=== PATIENT | female | born 1950 | race Caucasian/White ===

== ENCOUNTER 2020-02-15 20:11 | Observation (INO) | payer MEDICARE ==
[2020-02-15] MEDS ORDERED: MORPHINE SULFATE 4 MG/ML SYRINGE IVP STA (20:47)
[2020-02-15] MEDS ORDERED: SODIUM CHLORIDE 0.9% 1,000 ML IV ONE (20:47)
[2020-02-15] MEDS ORDERED: ONDANSETRON 4 MG/2 ML VIAL IVP STA (20:47)
[2020-02-15 21:32] LABS: Basophils % (A) 0 %; Eosinophils # (A) 0.1 k/uL (0-0.7); Eosinophils % (A) 1 %; HCT 38.1 % (34.0-46.0); HGB 12.9 gm/dL (11.4-16.0); Lymphocytes # (A) 1.4 k/uL (1.0-4.8); Lymphocytes % (A) 20 %; MCH 32.1 pg (25.0-35.0); MCHC 33.9 g/dL (31.0-37.0); MCV 94.9 fL (80.0-100.0); Mean Platelet Volume 7.5; Monocytes # (A) 0.3 k/uL (0-1.0); Monocytes % (A) 4 %; Neutrophils # (A) 5.3 k/uL (1.3-7.7); Neutrophils % (A) 73 %; Platelet Count 264 k/uL (150-450); RBC 4.01 m/uL (3.80-5.40); RDW 12.6 % (11.5-15.5); WBC 7.3 k/uL (3.8-10.6)
[2020-02-15 21:40] LABS: ALT 196 U/L (4-34); AST 425 U/L (14-36); African American GFR (CKD) >90 (>60 ml/min/1.73 sqM); Albumin 4.7 g/dL (3.5-5.0); Alkaline Phosphatase 96 U/L (38-126); Anion Gap 11 mmol/L; Blood Urea Nitrogen 16 mg/dL (7-17); Calcium 9.8 mg/dL (8.4-10.2); Carbon Dioxide 22 mmol/L (22-30); Chloride 107 mmol/L (98-107); Glucose 161 mg/dL (74-99); Non-African American GFR(CKD) 81 (>60 ml/min/1.73 sqM); Potassium 3.9 mmol/L (3.5-5.1); Sodium 140 mmol/L (137-145); Total Bilirubin 1.2 mg/dL (0.2-1.3); Total Protein 7.1 g/dL (6.3-8.2)
--- NOTE | 2020-02-15 21:54 | ED ---
Abdominal Pain HPI - General Chief Complaint: Abdominal Pain Stated Complaint: Abdominal Pain Time Seen by Provider: 02/15/20 20:20 Source: patient, family Mode of arrival: ambulatory Limitations: no limitations - History of Present Illness Initial Comments: Patient is a 69-year-old female with no reported past history presents emergency room with reported right upper quadrant abdominal pain. Patient reports that she has had symptoms for the past 6 weeks. States that every time she eats something she will have postprandial pain. Pain will eventually go away. States that this evening she was eating food and approximately 20 minutes after eating she had intense pain. Describes it as a sharp sensation which radiates around to the right side. She had associated nausea and vomiting. She did not take anything for pain. Denies fevers or chills. No chest pain or shortness of breath. Denies ripping or tearing sensation to her back. She denies any associated diarrhea, constipation, melenic stools. There are no other alleviating, precipitating or modifying factors - Related Data Home Medications Medication Instructions Recorded Confirmed Ascorbic Acid [Vitamin C] 500 mg PO DAILY 02/16/20 02/16/20 Calcium Carbonate/Vitamin D3 1 cap PO DAILY 02/16/20 02/16/20 [Calcium 600-Vit D3 500 Softgel] Fenofibrate,Micronized 134 mg PO HS 02/16/20 02/16/20 [Fenofibrate] Levothyroxine Sodium [Synthroid] 50 mcg PO DAILY 02/16/20 02/16/20 Multivitamins, Thera [Multivitamin 1 tab PO DAILY 02/16/20 02/16/20 (formulary)] Ubidecarenone [Co Q-10] 100 mg PO DAILY 02/16/20 02/16/20 Previous Rx's Medication Instructions Recorded Omeprazole [PriLOSEC] 40 mg PO [facility]-BRKFST #14 capsule. 02/17/20 Allergies Allergy/AdvReac Type Severity Reaction Status Date / Time Penicillins Allergy Confusion Verified 02/16/20 08:18 Review of Systems ROS Statement: Those systems with pertinent positive or pertinent negative responses have been documented in the HPI. ROS Other: All systems not noted in ROS Statement are negative. Past Medical History Past Medical History: No Reported History History of Any Multi-Drug Resistant Organisms: None Reported Past Surgical History: Section Past Psychological History: No Psychological Hx Reported Smoking Status: Never smoker Past Alcohol Use History: Occasional Past Drug Use History: None Reported - Past Family History Brother(s) Family Medical History: Diabetes Mellitus Mother Family Medical History: Congestive Heart Failure (CHF) General Exam Limitations: no limitations General appearance: alert, in distress, other (moaning in pain upon presentation) Head exam: Present: atraumatic, normocephalic, normal inspection Eye exam: Present: normal appearance, PERRL, EOMI. Absent: scleral icterus, conjunctival injection, periorbital swelling ENT exam: Present: normal exam, mucous membranes moist Neck exam: Present: normal inspection. Absent: tenderness, meningismus, lymphadenopathy Respiratory exam: Present: normal lung sounds bilaterally. Absent: respiratory distress, wheezes, rales, rhonchi, stridor Cardiovascular Exam: Present: regular rate, normal rhythm, normal heart sounds. Absent: systolic murmur, diastolic murmur, rubs, gallop, clicks GI/Abdominal exam: Present: soft, tenderness (RUQ), normal bowel sounds. Absent: distended, guarding, rebound, rigid Extremities exam: Present: normal inspection, full ROM, normal capillary refill. Absent: tenderness, pedal edema, joint swelling, calf tenderness Back exam: Present: normal inspection Neurological exam: Present: alert, oriented X3, CN II-XII intact Psychiatric exam: Present: normal affect, normal mood Skin exam: Present: warm, dry, intact, normal color. Absent: rash Course Vital Signs 02/15/20 02/15/20 02/16/20 20:19 22:00 00:24 Temperature 98.3 F 98.2 F 98 F Pulse Rate 70 65 61 Respiratory 24 16 16 Rate Blood Pressure 142/69 116/46 104/66 O2 Sat by Pulse 96 96 97 Oximetry Medical Decision Making - Medical Decision Making Upon arrival the patient was placed into room 11. A thorough history and physical exam was performed. Patient is an intense amount of pain therefore IV is established. The patient was given 4 mg of morphine and 4 mg of Zofran. Laboratory studies were conducted. Lactic acid is 2.7. Liver enzymes elevated at 425 AST and 196 ALT. Lipase is 355. Ultrasound demonstrates multiple gallstones without signs of acute cholecystitis. CT of the patient's abdomen and pelvis was performed to evaluate for biliary stones. Patient has a single loop of small bowel slightly distended left upper quadrant which could relate to local ileus. Gallstones and possible mild gallbladder wall thickening. I did discuss results with the patient. Pain is markedly improved at this time. I did recommend hospital admission in order to recheck the patient's liver studies in the morning. I will have patient evaluated by GI and surgery to discuss possible passage of gallstone. Patient agreed to this. Patient will be admitted to [facility]. Discussed the case with Abigail who accepted admission. Patient is awaiting a bed on the floor - Lab Data Result diagrams: 02/16/20 09:18 02/17/20 07:28 Lab Results 02/15/20 02/15/20 02/15/20 Range/Units 21:14 21:14 21:14 WBC 7.3 (3.8-10.6) k/uL RBC 4.01 (3.80-5.40) m/uL Hgb 12.9 (11.4-16.0) gm/dL Hct 38.1 (34.0-46.0) % MCV 94.9 (80.0-100.0) fL MCH 32.1 (25.0-35.0) pg MCHC 33.9 (31.0-37.0) g/dL RDW 12.6 (11.5-15.5) % Plt Count 264 (150-450) k/uL Neutrophils % 73 % Lymphocytes % 20 % Monocytes % 4 % Eosinophils % 1 % Basophils % 0 % Neutrophils # 5.3 (1.3-7.7) k/uL Lymphocytes # 1.4 (1.0-4.8) k/uL Monocytes # 0.3 (0-1.0) k/uL Eosinophils # 0.1 (0-0.7) k/uL Basophils # 0.0 (0-0.2) k/uL Sodium 140 (137-145) mmol/L Potassium 3.9 (3.5-5.1) mmol/L Chloride 107 (98-107) mmol/L Carbon Dioxide 22 (22-30) mmol/L Anion Gap 11 mmol/L BUN 16 (7-17) mg/dL Creatinine 0.75 (0.52-1.04) mg/dL Est GFR (CKD-EPI)AfAm >90 (>60 ml/min/1.73 sqM) Est GFR (CKD-EPI)NonAf 81 (>60 ml/min/1.73 sqM) Glucose 161 H (74-99) mg/dL Lactic Ac Sepsis Rflx Plasma Lactic Acid Onur 2.7 H* (0.7-2.0) mmol/L Calcium 9.8 (8.4-10.2) mg/dL Total Bilirubin 1.2 (0.2-1.3) mg/dL AST 425 H (14-36) U/L ALT 196 H (4-34) U/L Alkaline Phosphatase 96 (38-126) U/L Total Protein 7.1 (6.3-8.2) g/dL Albumin 4.7 (3.5-5.0) g/dL Lipase 355 H (23-300) U/L 02/15/20 Range/Units 21:43 WBC (3.8-10.6) k/uL RBC (3.80-5.40) m/uL Hgb (11.4-16.0) gm/dL Hct (34.0-46.0) % MCV (80.0-100.0) fL MCH (25.0-35.0) pg MCHC (31.0-37.0) g/dL RDW (11.5-15.5) % Plt Count (150-450) k/uL Neutrophils % % Lymphocytes % % Monocytes % % Eosinophils % % Basophils % % Neutrophils # (1.3-7.7) k/uL Lymphocytes # (1.0-4.8) k/uL Monocytes # (0-1.0) k/uL Eosinophils # (0-0.7) k/uL Basophils # (0-0.2) k/uL Sodium (137-145) mmol/L Potassium (3.5-5.1) mmol/L Chloride (98-107) mmol/L Carbon Dioxide (22-30) mmol/L Anion Gap mmol/L BUN (7-17) mg/dL Creatinine (0.52-1.04) mg/dL Est GFR (CKD-EPI)AfAm (>60 ml/min/1.73 sqM) Est GFR (CKD-EPI)NonAf (>60 ml/min/1.73 sqM) Glucose (74-99) mg/dL Lactic Ac Sepsis Rflx Y Plasma Lactic Acid Onur (0.7-2.0) mmol/L Calcium (8.4-10.2) mg/dL Total Bilirubin (0.2-1.3) mg/dL AST (14-36) U/L ALT (4-34) U/L Alkaline Phosphatase (38-126) U/L Total Protein (6.3-8.2) g/dL Albumin (3.5-5.0) g/dL Lipase (23-300) U/L - EKG Data EKG Comments: EKG demonstrates normal sinus rhythm with a ventricular rate of 75. [place] interval is 126. QRS 110. QTC of 477. J-point elevation in the inferior leads. No acute ST segment elevations Disposition Clinical Impression: Transaminitis, Cholelithiasis, Elevated lipase, Abdominal pain Disposition: ADMITTED IP TO THIS HOSP Condition: Stable Is patient prescribed a controlled substance at d/c from ED?: No Decision to Admit Reason: Admit from EC Decision Date: 02/15/20 Decision Time: 23:51
--- NOTE | 2020-02-15 22:14 | US ---
EXAMINATION TYPE: US gallbladder DATE OF EXAM: 02/15/2020 COMPARISON: NONE CLINICAL HISTORY: post prandial pain, nausea/vomiting. Abdomen pain and N/V EXAM MEASUREMENTS: Liver Length: 17.8 cm Gallbladder Wall: 0.2 cm CBD: 0.5 cm Right Kidney: 11.8 x 4.1 x 4.7 cm Pancreas: visualized portions wnl, limited by overlying midline bowel gas Liver: measures in upper limits of normal, mildly heterogeneous Gallbladder: cholelithiasis Evidence for sonographic Marti's sign: no CBD: visualized portions wnl, limited by overlying bowel gas Right Kidney: wnl IMPRESSION: There are multiple large gallstones. No dilated ducts. No focal liver defect.
--- NOTE | 2020-02-15 23:33 | CT ---
EXAMINATION TYPE: CT abdomen pelvis w con DATE OF EXAM: 02/15/2020 COMPARISON: None HISTORY: RUQ pain CT DLP: 1231.5 mGycm Automated exposure control for dose reduction was used. CONTRAST: Performed with IV Contrast, patient injected with 100 mL of Isovue 300. Lung bases are clear. There is no pleural effusion. Heart size is normal. Liver spleen pancreas appear normal. There are few gallstones. The bile ducts are not dilated. The st omach appears intact. There is very minimal pericholecystic fluid or gallbladder wall thickening. There is no adrenal mass. Kidneys have normal size. There are bilateral renal cortical cysts that marilyn sure up to 1.5 cm. There is no hydronephrosis. Delayed images show normal renal excretion. There are small renal parapelvic cysts. There is no retroperitoneal adenopathy. Bladder distends smoothly. Ther e is no inguinal hernia. There is no free fluid in the pelvis. Uterus is anteverted. There is no evidence of pelvic mass. Ther e are scattered sigmoid diverticula. There is no sign of diverticulitis. Appendix is posterior and me dial and appears normal. There is no sign of appendicitis. There is no mesenteric edema. There is no ascites or free air. There is no evidence of bowel obstruct ion. There is a single loop of small bowel in the left upper quadrant that measures up to 2.8 cm. Lumbar vertebra have normal alignment. There is no compression fracture. Posterior elements are intac t. Bony pelvis is intact. IMPRESSION: Single loop of small bowel slightly distended in the left upper quadrant could relate to localized il eus. Gallstones and possible mild gallbladder wall thickening. Cholecystitis is possible.
[2020-02-15] MEDS ORDERED: NALOXONE 0.4 MG/ML 1 ML VIAL IV PRN (23:51)
[2020-02-15] MEDS ORDERED: ONDANSETRON 4 MG/2 ML VIAL IVP PRN (23:51)
[2020-02-16 00:44] LABS: Appearance,Urine Clear (Clear); Bilirubin,Urine Negative (Negative); Blood,Urine Small (Negative); Color,Urine Yellow; Glucose,Urine (UA) Negative (Negative); Ketones,Urine Negative (Negative); Leukocyte Esterase,Urine Moderate (Negative); Nitrite,Urine Negative (Negative); Protein,Urine Negative (Negative); RBC,Urine 18 /hpf (0-5); Squamous Epithelial Cell,Urine 8 /hpf (0-4); Urobilinogen,Urine <2.0 mg/dL (<2.0); WBC,Urine 3 /hpf (0-5)
[2020-02-16 00:50] LABS: Specific Gravity,Urine >1.050 (1.001-1.035)
[2020-02-16] MEDS: SODIUM CHLORIDE 0.9% 1,000 ML IV SCH ×2 (01:35→15:07)
[2020-02-16 09:43] LABS: Basophils % (A) 0 %; Eosinophils # (A) 0.1 k/uL (0-0.7); Eosinophils % (A) 2 %; HCT 35.6 % (34.0-46.0); HGB 11.5 gm/dL (11.4-16.0); Lymphocytes # (A) 1.6 k/uL (1.0-4.8); Lymphocytes % (A) 32 %; MCHC 32.4 g/dL (31.0-37.0); MCV 95.8 fL (80.0-100.0); Mean Platelet Volume 7.6; Monocytes # (A) 0.3 k/uL (0-1.0); Monocytes % (A) 7 %; Neutrophils # (A) 2.9 k/uL (1.3-7.7); Neutrophils % (A) 58 %; Platelet Count 209 k/uL (150-450); RBC 3.72 m/uL (3.80-5.40); RDW 12.8 % (11.5-15.5)
--- NOTE | 2020-02-16 09:52 | P.GSCN ---
<Carmen Dudley - Last Filed: 02/16/20 09:49> History of Present Illness Consult date: 02/16/20 Reason for Consult: abdominal pain Requesting physician: Clara Rivero History of present illness: CHIEF COMPLAINT: Cholelithiasis HISTORY OF PRESENT ILLNESS: 69-year-old female who presented to the emergency room with a chief complaint of abdominal pain. Patient states her had a stroke in December 2018 and she has been caring for him since. She reports that she has not been taking care of herself as well as she should since that time. She states about 6 weeks ago she first noticed epigastric and right upper quadrant pain after eating a heavy meal. She states she has been trying to watch her diet since that time and she has been able to manage her symptoms. However she was visiting with family yesterday and she reports eating hot dogs, salad with ranch dressing, and cake. She states about 20 minutes after eating she developed severe epigastric and right upper quadrant pain that continued to worsen in severity over the next couple hours. Patient reports an episode of emesis in the emergency room. She states this morning she is feeling better. She denies abdominal pain. Denies nausea or vomiting. Vital signs are stable. She is afebrile. PAST MEDICAL HISTORY: See list. PAST SURGICAL HISTORY: See list. SOCIAL HISTORY: No illicit drug use. REVIEW OF SYSTEMS: CONSTITUTIONAL: Denies fever or chills. HEENT: Denies blurred vision, vision changes, or eye pain. Denies hemoptysis CARDIOVASCULAR: Denies chest pain or pressure. RESPIRATORY: No shortness of breath. GASTROINTESTINAL: Refer to HPI for pertinent findings HEMATOLOGIC: Denies bleeding disorders. GENITOURINARY: Denies any blood in urine. SKIN: Denies pruitis. Denies rash. PHYSICAL EXAM: VITAL SIGNS: Reviewed. GENERAL: Well-developed in no acute distress. HEENT: No sclera icterus. Extraocular movements grossly intact. Moist buccal mucosa. Head is atraumatic, normocephalic. ABDOMEN: Soft. Nondistended. Nontender. NEUROLOGIC: Alert and oriented. Cranial nerves II through XII grossly intact. LABORATORY DATA: WBC 7.3. Hemoglobin 12.9. Platelet count 164. Lactic acid 2.7. Repeat 1.7. Bilirubin 1.2. AST 425. ALT 196. IMAGING: -Ultrasound gallbladder: Multiple large gallstones. No dilated ducts. No focal liver defect. -CT abdomen and pelvis: Single loop of small bowel slightly distended the left upper quadrant could relate to localized ileus. Gallstones and possible mild gallbladder wall thickening. ASSESSMENT: 1. Abdominal pain 2. Cholelithiasis 3. Transaminitis PLAN: -Continue clear liquid diet -CMP ordered for this AM. Await results -GI on consult. Await evaluation -Dr. Hawkins will re-evaluate patient this afternoon. Possible plans for lap vanessa. Nurse practitioner note has been reviewed by physician. Signing provider agrees with the documented findings, assessment, and plan of care. Past Medical History Past Medical History: No Reported History, Hyperlipidemia, Osteoarthritis (OA), Thyroid Disorder History of Any Multi-Drug Resistant Organisms: None Reported Past Surgical History: Section, Orthopedic Surgery Additional Past Surgical History / Comment(s): broken left wrist repair in 2016 Past Anesthesia/Blood Transfusion Reactions: No Reported Reaction Past Psychological History: No Psychological Hx Reported Smoking Status: Never smoker Past Alcohol Use History: Occasional Past Drug Use History: None Reported - Past Family History Brother(s) Family Medical History: Diabetes Mellitus Mother Family Medical History: Congestive Heart Failure (CHF) Medications and Allergies Home Medications Medication Instructions Recorded Confirmed Type Ascorbic Acid [Vitamin C] 500 mg PO DAILY 02/16/20 02/16/20 History Calcium Carbonate/Vitamin D3 1 cap PO DAILY 02/16/20 02/16/20 History [Calcium 600-Vit D3 500 Softgel] Fenofibrate,Micronized 134 mg PO HS 02/16/20 02/16/20 History [Fenofibrate] Levothyroxine Sodium [Synthroid] 50 mcg PO DAILY 02/16/20 02/16/20 History Multivitamins, Thera [Multivitamin 1 tab PO DAILY 02/16/20 02/16/20 History (formulary)] Ubidecarenone [Co Q-10] 100 mg PO DAILY 02/16/20 02/16/20 History Allergies Allergy/AdvReac Type Severity Reaction Status Date / Time Penicillins Allergy Confusion Verified 02/16/20 08:18 Surgical - Exam Vital Signs Temp Pulse Resp BP Pulse Ox 98.3 F 70 24 142/69 96 02/15/20 20:19 02/15/20 20:19 02/15/20 20:19 02/15/20 20:19 02/15/20 20:19 Results - Labs 02/16/20 09:18 02/15/20 21:14 Abnormal Lab Results - Last 24 Hours (Table) 02/15/20 02/15/20 02/16/20 Range/Units 21:14 21:14 00:31 RBC (3.80-5.40) m/uL Glucose 161 H (74-99) mg/dL Plasma Lactic Acid Onur 2.7 H* (0.7-2.0) mmol/L AST 425 H (14-36) U/L ALT 196 H (4-34) U/L Lipase 355 H (23-300) U/L Ur Specific [place] >1.050 H (1.001-1.035) Urine Blood Small H (Negative) Ur Leukocyte Esterase Moderate H (Negative) Urine RBC 18 H (0-5) /hpf Ur Squamous Epith Cells 8 H (0-4) /hpf 02/16/20 Range/Units 09:18 RBC 3.72 L (3.80-5.40) m/uL Glucose (74-99) mg/dL Plasma Lactic Acid Onur (0.7-2.0) mmol/L AST (14-36) U/L ALT (4-34) U/L Lipase (23-300) U/L Ur Specific [place] (1.001-1.035) Urine Blood (Negative) Ur Leukocyte Esterase (Negative) Urine RBC (0-5) /hpf Ur Squamous Epith Cells (0-4) /hpf Diabetes panel 02/15/20 Range/Units 21:14 Sodium 140 (137-145) mmol/L Potassium 3.9 (3.5-5.1) mmol/L Chloride 107 (98-107) mmol/L Carbon Dioxide 22 (22-30) mmol/L BUN 16 (7-17) mg/dL Creatinine 0.75 (0.52-1.04) mg/dL Glucose 161 H (74-99) mg/dL Calcium 9.8 (8.4-10.2) mg/dL AST 425 H (14-36) U/L ALT 196 H (4-34) U/L Alkaline Phosphatase 96 (38-126) U/L Total Protein 7.1 (6.3-8.2) g/dL Albumin 4.7 (3.5-5.0) g/dL Calcium panel 02/15/20 Range/Units 21:14 Calcium 9.8 (8.4-10.2) mg/dL Albumin 4.7 (3.5-5.0) g/dL Pituitary panel 02/15/20 Range/Units 21:14 Sodium 140 (137-145) mmol/L Potassium 3.9 (3.5-5.1) mmol/L Chloride 107 (98-107) mmol/L Carbon Dioxide 22 (22-30) mmol/L BUN 16 (7-17) mg/dL Creatinine 0.75 (0.52-1.04) mg/dL Glucose 161 H (74-99) mg/dL Calcium 9.8 (8.4-10.2) mg/dL Adrenal panel 02/15/20 Range/Units 21:14 Sodium 140 (137-145) mmol/L Potassium 3.9 (3.5-5.1) mmol/L Chloride 107 (98-107) mmol/L Carbon Dioxide 22 (22-30) mmol/L BUN 16 (7-17) mg/dL Creatinine 0.75 (0.52-1.04) mg/dL Glucose 161 H (74-99) mg/dL Calcium 9.8 (8.4-10.2) mg/dL Total Bilirubin 1.2 (0.2-1.3) mg/dL AST 425 H (14-36) U/L ALT 196 H (4-34) U/L Alkaline Phosphatase 96 (38-126) U/L Total Protein 7.1 (6.3-8.2) g/dL Albumin 4.7 (3.5-5.0) g/dL <Cisco Hawkins - Last Filed: 02/16/20 14:17> History of Present Illness History of present illness: As above. Patient with history consistent with intermittent biliary colic. Last night the pain was more severe. It did resolve shortly after arrival to the hospital. Last night for the first time she noticed some discoloration to her urine. CAT scan and ultrasound reviewed. On coronal views of CAT scan suspect possible distal CBD Stone. Agree with plans for MRCP. Will require cholecystectomy once biliary tract clear. Surgical - Exam Vital Signs Temp Pulse Resp BP Pulse Ox 98.3 F 70 24 142/69 96 02/15/20 20:19 02/15/20 20:19 02/15/20 20:19 02/15/20 20:19 02/15/20 20:19 Results - Labs 02/16/20 09:18 02/16/20 09:18 Abnormal Lab Results - Last 24 Hours (Table) 02/15/20 02/15/20 02/16/20 Range/Units 21:14 21:14 00:31 RBC (3.80-5.40) m/uL Chloride (98-107) mmol/L Glucose 161 H (74-99) mg/dL Plasma Lactic Acid Onur 2.7 H* (0.7-2.0) mmol/L AST 425 H (14-36) U/L ALT 196 H (4-34) U/L Total Protein (6.3-8.2) g/dL Lipase 355 H (23-300) U/L Ur Specific [place] >1.050 H (1.001-1.035) Urine Blood Small H (Negative) Ur Leukocyte Esterase Moderate H (Negative) Urine RBC 18 H (0-5) /hpf Ur Squamous Epith Cells 8 H (0-4) /hpf 02/16/20 02/16/20 Range/Units 09:18 09:18 RBC 3.72 L (3.80-5.40) m/uL Chloride 109 H (98-107) mmol/L Glucose 116 H (74-99) mg/dL Plasma Lactic Acid Onur (0.7-2.0) mmol/L AST 481 H (14-36) U/L ALT 365 H (4-34) U/L Total Protein 6.1 L (6.3-8.2) g/dL Lipase (23-300) U/L Ur Specific [place] (1.001-1.035) Urine Blood (Negative) Ur Leukocyte Esterase (Negative) Urine RBC (0-5) /hpf Ur Squamous Epith Cells (0-4) /hpf Diabetes panel 02/15/20 02/16/20 Range/Units 21:14 09:18 Sodium 140 138 (137-145) mmol/L Potassium 3.9 3.7 (3.5-5.1) mmol/L Chloride 107 109 H (98-107) mmol/L Carbon Dioxide 22 23 (22-30) mmol/L BUN 16 10 (7-17) mg/dL Creatinine 0.75 0.62 (0.52-1.04) mg/dL Glucose 161 H 116 H (74-99) mg/dL Calcium 9.8 8.8 (8.4-10.2) mg/dL AST 425 H 481 H (14-36) U/L ALT 196 H 365 H (4-34) U/L Alkaline Phosphatase 96 79 (38-126) U/L Total Protein 7.1 6.1 L (6.3-8.2) g/dL Albumin 4.7 3.8 (3.5-5.0) g/dL Calcium panel 02/15/20 02/16/20 Range/Units 21:14 09:18 Calcium 9.8 8.8 (8.4-10.2) mg/dL Albumin 4.7 3.8 (3.5-5.0) g/dL Pituitary panel 02/15/20 02/16/20 Range/Units 21:14 09:18 Sodium 140 138 (137-145) mmol/L Potassium 3.9 3.7 (3.5-5.1) mmol/L Chloride 107 109 H (98-107) mmol/L Carbon Dioxide 22 23 (22-30) mmol/L BUN 16 10 (7-17) mg/dL Creatinine 0.75 0.62 (0.52-1.04) mg/dL Glucose 161 H 116 H (74-99) mg/dL Calcium 9.8 8.8 (8.4-10.2) mg/dL Adrenal panel 02/15/20 02/16/20 Range/Units 21:14 09:18 Sodium 140 138 (137-145) mmol/L Potassium 3.9 3.7 (3.5-5.1) mmol/L Chloride 107 109 H (98-107) mmol/L Carbon Dioxide 22 23 (22-30) mmol/L BUN 16 10 (7-17) mg/dL Creatinine 0.75 0.62 (0.52-1.04) mg/dL Glucose 161 H 116 H (74-99) mg/dL Calcium 9.8 8.8 (8.4-10.2) mg/dL Total Bilirubin 1.2 0.6 (0.2-1.3) mg/dL AST 425 H 481 H (14-36) U/L ALT 196 H 365 H (4-34) U/L Alkaline Phosphatase 96 79 (38-126) U/L Total Protein 7.1 6.1 L (6.3-8.2) g/dL Albumin 4.7 3.8 (3.5-5.0) g/dL
[2020-02-16 09:54] LABS: ALT 365 U/L (4-34); AST 481 U/L (14-36); African American GFR (CKD) >90 (>60 ml/min/1.73 sqM); Albumin 3.8 g/dL (3.5-5.0); Alkaline Phosphatase 79 U/L (38-126); Anion Gap 6 mmol/L; Blood Urea Nitrogen 10 mg/dL (7-17); Calcium 8.8 mg/dL (8.4-10.2); Carbon Dioxide 23 mmol/L (22-30); Chloride 109 mmol/L (98-107); Glucose 116 mg/dL (74-99); Non-African American GFR(CKD) >90 (>60 ml/min/1.73 sqM); Potassium 3.7 mmol/L (3.5-5.1); Sodium 138 mmol/L (137-145); Total Bilirubin 0.6 mg/dL (0.2-1.3); Total Protein 6.1 g/dL (6.3-8.2)
--- NOTE | 2020-02-16 14:27 | P.HPIM ---
History of Present Illness Patient very pleasant 69-year-old female came in with complaints of epigastric abdominal discomfort along with nausea vomiting symptoms has been going on for 6 weeks much worse last night her pain is burning and sharp in nature in the right upper quadrant and the epigastric area along with some episodes of nausea vomiting. Everything started after she started eating whatever she ate she threw up and felt better after throwing up. Patient underwent further imaging studies with abdominal computed tomography scan which showed some mild distention of the small bowel loops and gallstones on ultrasound did show gallstones without any distention of common bile duct or dilated common bile duct. Patient does have elevated liver enzymes with general surgery was consulted and they consulted gastroenterology because of elevated liver enzymes. Review of Systems REVIEW OF SYSTEMS: CONSTITUTIONAL: No fever, no malaise, no fatigue. HEENT: No recent visual problems or hearing problems. Denied any sore throat. CARDIOVASCULAR: No chest pain, orthopnea, PND, no palpitations, no syncope. PULMONARY: No shortness of breath, no cough, no hemoptysis. GASTROINTESTINAL: As mentioned in HPI NEUROLOGICAL: No headaches, no weakness, no numbness. HEMATOLOGICAL: Denies any bleeding or petechiae. GENITOURINARY: Denies any burning micturition, frequency, or urgency. MUSCULOSKELETAL/RHEUMATOLOGICAL: Denies any joint pain, swelling, or any muscle pain. ENDOCRINE: Denies any polyuria or polydipsia. The rest of the 14-point review of systems is negative. Past Medical History Past Medical History: No Reported History, Hyperlipidemia, Osteoarthritis (OA), Thyroid Disorder History of Any Multi-Drug Resistant Organisms: None Reported Past Surgical History: Section, Orthopedic Surgery Additional Past Surgical History / Comment(s): broken left wrist repair in 2016 Past Anesthesia/Blood Transfusion Reactions: No Reported Reaction Past Psychological History: No Psychological Hx Reported Smoking Status: Never smoker Past Alcohol Use History: Occasional Past Drug Use History: None Reported - Past Family History Brother(s) Family Medical History: Diabetes Mellitus Mother Family Medical History: Congestive Heart Failure (CHF) Medications and Allergies Home Medications Medication Instructions Recorded Confirmed Type Ascorbic Acid [Vitamin C] 500 mg PO DAILY 02/16/20 02/16/20 History Calcium Carbonate/Vitamin D3 1 cap PO DAILY 02/16/20 02/16/20 History [Calcium 600-Vit D3 500 Softgel] Fenofibrate,Micronized 134 mg PO HS 02/16/20 02/16/20 History [Fenofibrate] Levothyroxine Sodium [Synthroid] 50 mcg PO DAILY 02/16/20 02/16/20 History Multivitamins, Thera [Multivitamin 1 tab PO DAILY 02/16/20 02/16/20 History (formulary)] Ubidecarenone [Co Q-10] 100 mg PO DAILY 02/16/20 02/16/20 History Allergies Allergy/AdvReac Type Severity Reaction Status Date / Time Penicillins Allergy Confusion Verified 02/16/20 08:18 Physical Exam Vitals: Vital Signs Temp Pulse Pulse Resp BP BP Pulse Ox 02/16/20 07:34 16 02/16/20 07:20 98.1 F 56 L 16 123/62 95 02/16/20 04:46 16 02/16/20 01:42 97.7 F 58 L 16 110/66 97 02/16/20 00:24 98 F 61 16 104/66 97 02/15/20 22:00 98.2 F 65 16 116/46 96 02/15/20 20:19 98.3 F 70 24 142/69 96 Intake and Output 02/15/20 02/16/20 02/16/20 22:59 06:59 14:59 Other: Voiding Method Toilet Toilet Weight 77.111 kg 77.111 kg PHYSICAL EXAMINATION: GENERAL: The patient is alert and oriented x3, not in any acute distress. Well developed, well nourished. HEENT: Pupils are round and equally reacting to light. EOMI. No scleral icterus. No conjunctival pallor. Normocephalic, atraumatic. No pharyngeal erythema. No thyromegaly. CARDIOVASCULAR: S1 and S2 present. No murmurs, rubs, or gallops. PULMONARY: Chest is clear to auscultation, no wheezing or crackles. ABDOMEN: Soft, no symptoms in tenderness no rebound or rigidity bowel sounds are present MUSCULOSKELETAL: No joint swelling or deformity. EXTREMITIES: No cyanosis, clubbing, or pedal edema. NEUROLOGICAL: Gross neurological examination did not reveal any focal deficits. SKIN: No rashes. Results CBC & Chem 7: 02/16/20 09:18 02/16/20 09:18 Labs: Abnormal Lab Results - Last 24 Hours (Table) 02/15/20 02/15/20 02/16/20 Range/Units 21:14 21:14 00:31 RBC (3.80-5.40) m/uL Chloride (98-107) mmol/L Glucose 161 H (74-99) mg/dL Plasma Lactic Acid Onur 2.7 H* (0.7-2.0) mmol/L AST 425 H (14-36) U/L ALT 196 H (4-34) U/L Total Protein (6.3-8.2) g/dL Lipase 355 H (23-300) U/L Ur Specific [place] >1.050 H (1.001-1.035) Urine Blood Small H (Negative) Ur Leukocyte Esterase Moderate H (Negative) Urine RBC 18 H (0-5) /hpf Ur Squamous Epith Cells 8 H (0-4) /hpf 02/16/20 02/16/20 Range/Units 09:18 09:18 RBC 3.72 L (3.80-5.40) m/uL Chloride 109 H (98-107) mmol/L Glucose 116 H (74-99) mg/dL Plasma Lactic Acid Onur (0.7-2.0) mmol/L AST 481 H (14-36) U/L ALT 365 H (4-34) U/L Total Protein 6.1 L (6.3-8.2) g/dL Lipase (23-300) U/L Ur Specific [place] (1.001-1.035) Urine Blood (Negative) Ur Leukocyte Esterase (Negative) Urine RBC (0-5) /hpf Ur Squamous Epith Cells (0-4) /hpf Thrombosis Risk Factor Assmnt - Choose All That Apply Each Factor Represents 1 point: Obesity (BMI >25), Varicose veins Each Risk Factor Represents 2 Points: Age 61-74 years Thrombosis Risk Factor Assessment Total Risk Factor Score: 4 Thrombosis Risk Factor Assessment Level: Moderate Risk Assessment and Plan Plan: -Cholelithiasis severe symptomatic without any evidence of cholecystitis at this time. General surgery evaluated the patient and continue with IV fluid supportive care patient was started on clear liquid diet. -Elevated liver enzymes: Secondary to gallstones. We'll repeat liver enzymes again tomorrow there is no evidence of common bile duct obstruction at this time. -Asymptomatic bacteriuria will not require any antibiotics -Lactic acidosis: Secondary to intravascular depletion from nausea vomiting. -Mild nonspecific Elevation of lipase not high enough to say pancreatitis
[2020-02-16] MEDS ORDERED: LORazepam 0.5 MG TAB PO ONE (15:00)
[2020-02-16] MEDS: PANTOPRAZOLE 40 MG/10 ML VIAL IVP SCH (15:03)
[2020-02-16 18:24] LABS: Hepatitis A Antibody IgM Non-Reactive (Non-Reactive); Hepatitis B Core IgM Non-Reactive (Non-Reactive); Hepatitis B Surface Antigen Non-Reactive (Non-Reactive); Hepatitis C IgG Antibody Non-Reactive (Non-Reactive)
--- NOTE | 2020-02-16 21:02 | CONS ---
CONSULTATION DATE OF DICTATION: 02/16/2020 REASON FOR CONSULTATION: Abdominal pain, elevated LFTs. HISTORY OF PRESENT ILLNESS: The patient is a 69-year-old pleasant white female who came into the emergency room yesterday complaining of severe epigastric pain that started yesterday morning. The pain was mostly in the epigastric area radiating to the right upper quadrant area and lasted for 2 or 3 hours. She came into the ER and was noted to have elevated LFTs and ultrasound did show evidence of gallstones. Hence we are consulted in regard to this issue. The patient states that she has history of gastroesophageal reflux disease and she intermittently has some epigastric discomfort and heartburn and takes Prevacid and her symptoms resolved. Never had this intense pain ever before. PAST MEDICAL HISTORY: Hypothyroidism and hypercholesterolemia. PAST SURGICAL HISTORY: . MEDICATIONS AT HOME: Synthroid, fenofibrate, multivitamin, vitamin C. ALLERGIES: PENICILLIN. SOCIAL HISTORY: No smoking. No alcohol use. FAMILY HISTORY: Unremarkable. REVIEW OF SYSTEMS: CARDIOPULMONARY: No chest pain or shortness of breath. GENITOURINARY: No dysuria or hematuria. MUSCULOSKELETAL: Unremarkable. SKIN: Unremarkable. ENDOCRINE: Unremarkable. PSYCHIATRIC: Unremarkable. NEUROLOGY: Unremarkable. ENT/VISION: Unremarkable. CONSTITUTIONAL: No recent weight loss. No fever, chills, night sweats. PHYSICAL EXAMINATION: She appears comfortable. No apparent distress. Vital signs are stable. Blood pressure 123/62, pulse rate 56, temperature 98.1. HEENT examination unremarkable. Conjunctivae pink. Sclerae anicteric. Oral cavity no lesions. NECK: No JVD or lymph node enlargement. CHEST: Clear to auscultation. HEART: Regular rate and rhythm. ABDOMEN: Soft. Bowel sounds are positive. There was very minimal tenderness in the epigastric area. Rest of the abdomen was benign. EXTREMITIES: No pedal edema. SKIN: No rashes. NEUROLOGIC: Alert and oriented x3. No focal deficits. LABS: WBC is within normal limits. AST 425, ALT 196. Today AST is up to 481 and ALT is 368. T-bilirubin and alkaline phosphatase are within normal limits. Ultrasound of the gallbladder did show evidence of multiple gallstones and no biliary ductal dilation. She also had a CT of the abdomen done that showed gallstones with mild gallbladder wall thickening suspicious for acute cholecystitis. IMPRESSION: This is a lady who presented to the hospital with acute onset of severe epigastric pain suggestive of biliary colic. She was noted to have elevated LFTs with ALT and AST in the range of 300 and 400, respectively. Ultrasound did not show any CBD dilation. She did have multiple gallstones. At this time, possibility of CBD stone cannot be excluded. Her symptoms have completely resolved since last night, and no abdominal pain today. Repeat labs from today show mild worsening of LFTs, but still she has no jaundice, and alkaline phosphatase is normal. RECOMMENDATIONS: 1. Continue with clear liquid diet. 2. Will obtain an MRCP to rule out CBD stone. 3. Repeat LFTs in the morning. 4. Based on that, we will decide if she needs any endoscopic intervention with an ERCP. The plan was discussed with the patient. She is agreeable to it. Thank you for this consultation. DESTINEY / DONOVAN: [id number] /
[2020-02-17] MEDS: SODIUM CHLORIDE 0.9% 1,000 ML IV SCH (05:45)
[2020-02-17] MEDS ORDERED: LEVOTHYROXINE 50 MCG TAB PO SCH (06:30)
[2020-02-17] MEDS: PANTOPRAZOLE 40 MG/10 ML VIAL IVP SCH (08:11)
[2020-02-17 08:24] LABS: ALT 285 U/L (4-34); AST 155 U/L (14-36); African American GFR (CKD) >90 (>60 ml/min/1.73 sqM); Albumin 3.8 g/dL (3.5-5.0); Alkaline Phosphatase 80 U/L (38-126); Anion Gap 6 mmol/L; Blood Urea Nitrogen 7 mg/dL (7-17); Carbon Dioxide 23 mmol/L (22-30); Chloride 111 mmol/L (98-107); Glucose 87 mg/dL (74-99); Non-African American GFR(CKD) >90 (>60 ml/min/1.73 sqM); Potassium 4.1 mmol/L (3.5-5.1); Sodium 140 mmol/L (137-145); Total Bilirubin 0.6 mg/dL (0.2-1.3); Total Protein 6.2 g/dL (6.3-8.2)
[2020-02-17 08:32] LABS: INR 1.1 (<1.2); Prothrombin Time 11.3 sec (9.0-12.0)
[2020-02-17] MEDS ORDERED: ENOXAPARIN 40 MG/0.4 ML SYRINGE SQ SCH (09:00)
--- NOTE | 2020-02-17 10:39 | P.PN ---
<Carmen Dudley - Last Filed: 02/17/20 10:32> Subjective Progress Note Date: 02/17/20 CHIEF COMPLAINT: Cholelithiasis HISTORY OF PRESENT ILLNESS: Patient examined this morning at the bedside. She denies abdominal pain. Denies nausea or vomiting. Patient unable to complete MRCP yesterday due to claustrophobia and neck and arm pain with positioning. AST improved from 481-155. ALT improved from 365-285. Vital signs stable. She is afebrile. PHYSICAL EXAM: VITAL SIGNS: Reviewed. GENERAL: Well-developed in no acute distress. HEENT: No sclera icterus. Extraocular movements grossly intact. Moist buccal mucosa. Head is atraumatic, normocephalic. ABDOMEN: Soft. Nondistended. Nontender. NEUROLOGIC: Alert and oriented. Cranial nerves II through XII grossly intact. ASSESSMENT: 1. Abdominal pain 2. Cholelithiasis 3. Transaminitis PLAN: -Continue clear liquid diet -Monitor LFTs -Patient unable to complete MRCP. Await further recommendations from GI service -Dr. Hawkins will re-evaluate patient this afternoon. Timing of cholecystectomy to be determined. Nurse practitioner note has been reviewed by physician. Signing provider agrees with the documented findings, assessment, and plan of care. Objective - Vital Signs Vital signs: Vital Signs Temp 97.5 F L 02/17/20 07:00 Pulse 74 02/17/20 07:29 Resp 17 02/17/20 07:29 BP 123/58 02/17/20 07:00 Pulse Ox 95 02/17/20 07:00 Intake & Output 02/16/20 02/17/20 02/17/20 18:59 06:59 18:59 Intake Total 1080 1020 Balance 1080 1020 Intake: Intake, IV Titration 600 900 Amount Sodium Chloride 0.9% 1, 600 900 000 ml @ 75 mls/hr IV . [id number] ANALY Rx#:[id number] Oral 480 120 Other: Voiding Method Toilet Toilet # Voids 1 2 2 - Labs CBC & Chem 7: 02/16/20 09:18 02/17/20 07:28 Labs: Abnormal Lab Results - Last 24 Hours (Table) 02/17/20 Range/Units 07:28 Chloride 111 H (98-107) mmol/L AST 155 H (14-36) U/L ALT 285 H (4-34) U/L Total Protein 6.2 L (6.3-8.2) g/dL <Cisco Hawkins - Last Filed: 02/17/20 11:06> Subjective As above. Patient doing better. Liver enzymes have improved. Unfortunately she was unable to have her MRCP yesterday. Still no pain. Abdominal exam benign. Options reviewed. Would favor discharge with scheduling of elective cholecystectomy next week. We'll check CMP preoperatively. Objective - Vital Signs Vital signs: Vital Signs Temp 97.5 F L 02/17/20 07:00 Pulse 74 02/17/20 07:29 Resp 17 02/17/20 07:29 BP 123/58 02/17/20 07:00 Pulse Ox 95 02/17/20 07:00 Intake & Output 02/16/20 02/17/20 02/17/20 18:59 06:59 18:59 Intake Total 1080 1020 Balance 1080 1020 Intake: Intake, IV Titration 600 900 Amount Sodium Chloride 0.9% 1, 600 900 000 ml @ 75 mls/hr IV . [id number] [facility] Rx#:[id number] Oral 480 120 Other: Voiding Method Toilet Toilet # Voids 1 2 2 - Labs CBC & Chem 7: 02/16/20 09:18 02/17/20 07:28 Labs: Abnormal Lab Results - Last 24 Hours (Table) 02/17/20 Range/Units 07:28 Chloride 111 H (98-107) mmol/L AST 155 H (14-36) U/L ALT 285 H (4-34) U/L Total Protein 6.2 L (6.3-8.2) g/dL
--- NOTE | 2020-02-17 14:07 | P.DS ---
Providers Date of admission: 02/15/20 23:54 Expected date of discharge: 02/17/20 Attending physician: Mirlande Bernal Consults: 02/15/20 23:52 Consult Physician Urgent Consulting Provider: Cisco Hawkins Consult Reason/Comments: cholelithiasis Do you want consulting provider notified?: Yes 02/15/20 23:53 Consult Physician Urgent Consulting Provider: Perry Ellis Consult Reason/Comments: transaminitis Do you want consulting provider notified?: Yes Primary care physician: Physician Nonstaff Hospital Course: Final diagnosis -Cholelithiasis without any evidence of cholecystitis -Elevated liver enzymes: Secondary to gallstones -Asymptomatic bacteriuria will not require any antibiotics -Lactic acidosis: Secondary to intravascular depletion -Mild nonspecific Elevation of lipase not high enough to say pancreatitis Discharge disposition Patient is being discharged in a stable condition with guarded prognosis to home. Patient will follow-up with Dr. Schneider out of [facility] upon discharge. Patient will also follow-up with Dr. hawkins surgery in the outpatient setting in one week. Total time taken is 35 minutes. History of present illness This is an 69-year-old female who was recently admitted with epigastric abdominal discomfort along with nausea and vomiting and was being closely monitored. Patient states that the symptoms have been ongoing for the last 6 weeks although worsened and had a burning and sharp right upper quadrant epigastric area pain with increased nausea vomiting. Patient was evaluated by GI and surgery and recommended an MRCP for elevated liver functions although patient was unable to tolerate the MRCP. Liver function slightly trending down and discuss with surgery in detail about following up in the outpatient setting in 1 week with repeat labs and then will likely proceed with a cholecystectomy at that time as the CT showed evidence of gallstones. Patient states her abdominal discomfort has improved and denies any nausea or vomiting. He shouldn't instructed to continue clear liquids and advance slowly and avoid any fatty, greasy foods upon discharge. Currently no reports of chest pain, shortness of breath, or palpitations. Patient is afebrile. No reports of nausea or vomiting and patient is tolerating diet. On exam vital signs are stable. Temp is 97.5F, pulse is 79, respirations are 17, blood pressure is 123/58, oxygen saturation is 95 % on room air. Cardio S1, S2 are present. Respiratory system shows clear to auscultation. Abdomen is soft and nontender. Nervous system shows no focal deficits. Please refer to medication reconciliation sheet for a list of medications. Patient Condition at Discharge: Stable Plan - Discharge Summary Discharge Rx Participant: Yes New Discharge Prescriptions: New Omeprazole [PriLOSEC] 40 mg PO AC-BRKFST #14 capsule.dr Squires Levothyroxine Sodium [Synthroid] 50 mcg PO DAILY Ubidecarenone [Co Q-10] 100 mg PO DAILY Fenofibrate,Micronized [Fenofibrate] 134 mg PO HS Calcium Carbonate/Vitamin D3 [Calcium 600-Vit D3 500 Softgel] 1 cap PO DAILY Ascorbic Acid [Vitamin C] 500 mg PO DAILY Multivitamins, Thera [Multivitamin (formulary)] 1 tab PO DAILY Discharge Medication List Ascorbic Acid [Vitamin C] 500 mg PO DAILY 02/16/20 [History] Calcium Carbonate/Vitamin D3 [Calcium 600-Vit D3 500 Softgel] 1 cap PO DAILY 02/16/20 [History] Fenofibrate,Micronized [Fenofibrate] 134 mg PO HS 02/16/20 [History] Levothyroxine Sodium [Synthroid] 50 mcg PO DAILY 02/16/20 [History] Multivitamins, Thera [Multivitamin (formulary)] 1 tab PO DAILY 02/16/20 [History] Ubidecarenone [Co Q-10] 100 mg PO DAILY 02/16/20 [History] Omeprazole [PriLOSEC] 40 mg PO AC-BRKFST #14 capsule. 02/17/20 [Rx] Follow up Appointment(s)/Referral(s): Cisco Hawkins MD [Medical Doctor] - 02/26/20 10:30 am Jaylintanile,Physician [Primary Care Provider] - 1-2 days Patient Instructions/Handouts: Gallstones (DC) Discharge Disposition: HOME SELF-CARE
--- NOTE | 2020-02-17 16:09 | PN ---
PROGRESS NOTE DATE OF DICTATION: 02/17/2020 Patient is a 69-year-old pleasant white female admitted to the hospital with severe epigastric pain and was noted to have elevated LFTs and gallstones. She was scheduled for an MRCP for clinical suspicion for CBD stones yesterday, but she could not tolerate and was claustrophobic; hence the procedure was not done. However, this morning she is doing better. She has no further episodes of abdominal pain. Her labs from today showed improving LFTs. PHYSICAL EXAMINATION: Appears comfortable. No apparent distress. VITAL SIGNS: Stable. Blood pressure 123/58, pulse rate 79, temperature 97.5. HEENT examination unremarkable. Conjunctivae pink. Sclerae anicteric. Oral cavity no lesions. NECK: No JVD or lymph node enlargement. CHEST: Clear to auscultation. HEART: Regular rate and rhythm. ABDOMEN: Soft. Bowel sounds are positive. No organomegaly. EXTREMITIES: No pedal edema. NEUROLOGIC: Alert and oriented x3. No focal deficits. LABS: Labs from today show AST down to 155, ALT down to 286. Bilirubin and alkaline phosphatase are normal. IMPRESSION: 1. Severe epigastric pain and right upper quadrant abdominal pain of 2 days' duration, likely related to biliary colic secondary from gallstones. 2. Elevated liver function tests. Rule out CBD stone. MRCP could not be done yesterday. However, her LFTs today have significantly improved, making it likely that she may have passed the CBD stone spontaneously. RECOMMENDATIONS: 1. Advance diet as tolerated. 2. The patient is being discharged home by Dr. Hawkins with an outpatient cholecystectomy next week. 3. Recommended to monitor LFTs prior to surgery, and if they are elevated, please notify us. Thank you for this consultation. MMODL / IJN: [id number] /
[2020-02-17 16:36] VITALS: BP 124/78; PULSE 59; RESP 16; TEMP 97.8
== END 2020-02-17 17:08 | disposition home or self-care (01) ==
LOC: EC 20:11 → 4SSUR 23:54
PROVIDERS: ADMIT Hospitalist; ATTEND Hospitalist
DX: K80.20 Calculus of gallbladder without cholecystitis without obstruction (principal); E03.9 Hypothyroidism, unspecified; E78.00 Pure hypercholesterolemia, unspecified; E87.2 Acidosis; F40.240 Claustrophobia; Z79.890 Hormone replacement therapy; Z82.49 Family history of ischemic heart disease and other diseases of the circulatory system; Z83.3 Family history of diabetes mellitus; Z88.0 Allergy status to penicillin; R74.8 Abnormal levels of other serum enzymes; Z11.59 Encounter for screening for other viral diseases
CPT/HCPCS: 96376; 96361 ×4; 96372; 96375 ×2; 96374; 99285; 36415; 93005; 80053 ×3; 80074; 83605 ×2; 83690; 85025 ×2; 85610; 81001; 76705; 74177; G0378 ×2; U0003; J2270; J2405; J1650; C9113 ×2; Q9967

== ENCOUNTER 2020-02-26 13:22 | Day surgery (SDC) | payer MEDICARE ==
[2020-02-24 11:34] VITALS: BMI 30.1
[~2020-02-26 13:22] MED LIST: ACETAMINOPHEN TAB 500 MG TAB PO ONE; DEXAMETHASONE SOD PHOSPHATE 10 MG/ML 1 ML VIAL IV ONE; HEPARIN SODIUM,PORCINE 5,000 UNIT/ML 1 ML VIAL SQ ONE; LACTATED RINGERS 1,000 ML IV SCH; ONDANSETRON 4 MG/2 ML VIAL IVP ONE
[2020-02-26] MEDS ORDERED: ACETAMINOPHEN TAB 500 MG TAB ONE (13:50)
[2020-02-26] MEDS ORDERED: HEPARIN SODIUM,PORCINE 5,000 UNIT/ML 1 ML VIAL ONE (13:51)
[2020-02-26] MEDS ORDERED: ONDANSETRON 4 MG/2 ML VIAL ONE (13:51)
--- NOTE | 2020-02-26 14:32 | P.GSHP ---
History of Present Illness H&P Date: 02/26/20 Chief Complaint: Choledocholithiasis Patient hospitalized on 02/15 with right upper quadrant pain. Pain radiated to the back. Liver enzymes were elevated. CAT scan showed possible common bile duct stone. MRCP was ordered however the patient was unable to tolerate the study. The following day the patient's liver enzymes were improved. Patient was feeling better shortly after arrival. Patient was discharged home with plans for outpatient cholecystectomy. Here today. Had slight discomfort last night that only lasted an hour or 2. Other than that has had no pain after discharge. Urine is clear. Labs being repeated today. Past Medical History Past Medical History: Hyperlipidemia, Osteoarthritis (OA), Thyroid Disorder Additional Past Medical History / Comment(s): abdominal pain and nausea-rt up per abd and epigastric area History of Any Multi-Drug Resistant Organisms: None Reported Past Surgical History: Section, Orthopedic Surgery Additional Past Surgical History / Comment(s): broken left wrist repair in 2016 Past Anesthesia/Blood Transfusion Reactions: No Reported Reaction Additional Past Anesthesia/Blood Transfusion Reaction / Comment(s): unknown hx blood transfusion Smoking Status: Never smoker - Past Family History Brother(s) Family Medical History: Diabetes Mellitus Mother Family Medical History: Congestive Heart Failure (CHF) Medications and Allergies Home Medications Medication Instructions Recorded Confirmed Type Ascorbic Acid [Vitamin C] 500 mg PO DAILY 02/16/20 02/24/20 History Calcium Carbonate/Vitamin D3 1 cap PO DAILY 02/16/20 02/24/20 History [Calcium 600-Vit D3 500 Softgel] Fenofibrate,Micronized 134 mg PO QAM 02/16/20 02/24/20 History [Fenofibrate] Levothyroxine Sodium [Synthroid] 50 mcg PO QAM 02/16/20 02/24/20 History Multivitamins, Thera [Multivitamin 1 tab PO DAILY 02/16/20 02/24/20 History (formulary)] Ubidecarenone [Co Q-10] 100 mg PO DAILY 02/16/20 02/24/20 History Omeprazole [PriLOSEC] 40 mg PO SIERRA-BRKFST #14 capsule. 02/17/20 02/24/20 Rx Allergies Allergy/AdvReac Type Severity Reaction Status Date / Time Penicillins Allergy passed out Verified 02/26/20 13:39 Surgical - Exam Vital Signs Temp Pulse Resp BP Pulse Ox 97.7 F 66 16 140/59 96 02/26/20 13:43 02/26/20 13:43 02/26/20 13:43 02/26/20 13:43 02/26/20 13:43 Physical exam: General: Well-developed, well-nourished HEENT: Normocephalic, sclerae nonicteric Abdomen: Nontender, nondistended Extremities: No edema Neuro: Alert and oriented Assessment and Plan (1) Choledocholithiasis Narrative/Plan: 69-year-old female with biliary colic and choledocholithiasis. We'll proceed with laparoscopic cholecystectomy, possible open cholecystectomy at this time. Labs are being ordered at this time. If the patient's liver enzymes are elevated discussed with patient that we would proceed with surgery however would consult GI postoperatively for possible ERCP. B Risks of bleeding, infection, bile leak, bile duct injury, retained common bile duct stone, trocar injury, conversion to an open procedure, hernia, anesthesia related complications were reviewed. The patient understands and wishes to proceed. Current Visit: Yes Status: Acute Code(s): K80.50 - CALCULUS OF BILE DUCT W/O CHOLANGITIS OR CHOLECYST W/O OBST SNOMED Code(s): 184543296
[2020-02-26] MEDS ORDERED: SODIUM CHLORIDE 0.9% 50 ML with CLINDAMYCIN 600 MG IV ONE ×2 (14:52)
[2020-02-26] MEDS ORDERED: NEOSTIGMINE 1 MG/ML 10 ML VIAL ONE (14:52)
[2020-02-26] MEDS ORDERED: MIDAZOLAM 2 MG/2 ML VIAL ONE (14:52)
[2020-02-26] MEDS ORDERED: ROCURONIUM BROMIDE 10 MG/ML 5 ML VIAL IV ONE (14:52)
[2020-02-26] MEDS ORDERED: fentaNYL (PF) 50 MCG/ML 2 ML AMP ONE (14:52)
[2020-02-26] MEDS ORDERED: SUCCINYLCHOLINE CHLORIDE 100 MG/5 ML SYR IV ONE (14:52)
[2020-02-26] MEDS ORDERED: LIDOCAINE 1% INJ 10MG/ML (20 ML MDV) ONE (14:52)
[2020-02-26] MEDS ORDERED: PROPOFOL 10 MG/ML 20 ML VIAL IV ONE (14:52)
[2020-02-26] MEDS ORDERED: GLYCOPYRROLATE 0.2 MG/ML 2 ML VIAL ONE (14:52)
[2020-02-26] MEDS ORDERED: BUPIVACAIN-EPI 0.25%-1:200,000 30 ML VIAL SQ ONE (15:11)
[2020-02-26] MEDS ORDERED: HYDROcodone/APAP 5-325MG 1 EACH TAB PO PRN (15:57)
[2020-02-26] MEDS ORDERED: NALOXONE 0.4 MG/ML 1 ML VIAL IV PRN (15:57)
--- NOTE | 2020-02-26 16:01 | P.OP ---
Date of Procedure: 02/26/20 Procedure(s) Performed: PREOPERATIVE DIAGNOSIS: Choledocholithiasis with chronic cholecystitis POSTOPERATIVE DIAGNOSIS: Same PROCEDURE: Laparoscopic cholecystectomy SURGEON: Shruthi EBL: Minimal see anesthesia record ANESTHESIA: Gen. COMPLICATIONS: None OPERATIVE PROCEDURE: The patient was brought and placed on the operating room table in the supine position. The patient was placed under general anesthesia at that time. The abdomen was prepped and draped in the usual sterile fashion. A small vertical infraumbilical incision was made. The fascia was grasped with the Hank forceps. The fascia was retracted anteriorly. The Veress needle was advanced into the peritoneal cavity. The saline drop test was normal. Insufflation took place up to 15 mmHg. A 5 mm optical trocar was advanced and the peritoneal cavity. 2 additional 5 mm trochars were placed in the right upper quadrant under direct visualization. A 12 mm trocar was advanced into the epigastric incision site. The gallbladder was retracted superiorly and laterally. The peritoneum overlying the infundibulum was bluntly dissected. The patient's cystic duct was visualized. The junction between the cystic duct common and hepatic duct was identified. The cystic duct was then divided after placement of 3 12 mm clips on the patient's side and one on the specimen side. The cystic artery was identified and clipped as well. A small vessel was seen along the gallbladder fossa and clipped as well. The gallbladder was then remov ed from the liver bed using electrocautery. The gallbladder was then removed from the epigastric trocar site with an Endo Catch bag. The gallbladder fossa was irrigated with saline. There was no evidence of any bleeding or biliary drainage seen. The fascia at the 12 millimeter site was closed using a Juliocesar- Kaitlynn 0 Vicryl stitch. The trochars were then removed. The skin at all 4 sites was closed using a 4-0 Monocryl stitch. Skin glue was utilized on the incision sites. At the end of this procedure the sponge and needle counts were correct. DISPOSITION: Stable to the recovery room
[2020-02-26] MEDS: HYDROmorphone 0.5 MG/0.5 ML SYRINGE IVP PRN ×4 (16:20→16:43)
[2020-02-26] MEDS ORDERED: ONDANSETRON 4 MG/2 ML VIAL IVP ONE (16:28)
[2020-02-26 16:33] VITALS: TEMP 98
[2020-02-26] MEDS ORDERED: KETOROLAC 30 MG/ML 1 ML VIAL IVP ONE (16:44)
[2020-02-26 17:18] LABS: ALT 67 U/L (4-34); AST 60 U/L (14-36); African American GFR (CKD) >90 (>60 ml/min/1.73 sqM); Albumin 4.4 g/dL (3.5-5.0); Alkaline Phosphatase 60 U/L (38-126); Anion Gap 9 mmol/L; Blood Urea Nitrogen 17 mg/dL (7-17); Calcium 9.3 mg/dL (8.4-10.2); Carbon Dioxide 23 mmol/L (22-30); Chloride 106 mmol/L (98-107); Glucose 116 mg/dL (74-99); Non-African American GFR(CKD) 86 (>60 ml/min/1.73 sqM); Potassium 4.7 mmol/L (3.5-5.1); Sodium 138 mmol/L (137-145); Total Bilirubin 0.7 mg/dL (0.2-1.3); Total Protein 6.9 g/dL (6.3-8.2)
[2020-02-26 17:24] VITALS: RESP 16
[2020-02-26 17:45] VITALS: BP 149/75; PULSE 75
== END 2020-02-26 18:13 | disposition home or self-care (01) ==
LOC: OR 13:22
PROVIDERS: ATTEND Surgery
DX: K80.12 Calculus of gallbladder with acute and chronic cholecystitis without obstruction (principal); I10 Essential (primary) hypertension; E78.5 Hyperlipidemia, unspecified; E07.9 Disorder of thyroid, unspecified; M19.90 Unspecified osteoarthritis, unspecified site; Z88.0 Allergy status to penicillin; Z79.890 Hormone replacement therapy; Z79.899 Other long term (current) drug therapy; Z98.890 Other specified postprocedural states; Z98.891 History of uterine scar from previous surgery; Z83.3 Family history of diabetes mellitus; Z82.49 Family history of ischemic heart disease and other diseases of the circulatory system
CPT/HCPCS: 88304; 80053; 47562; J2250; J1644; J1100; J2710; J2405; J2001; J3010; J1885; J0330; J2704; J1170